=== PATIENT | male | born 1990 | race Caucasian/White ===

== ENCOUNTER 2020-09-01 19:08 | Emergency (ER) | payer BC, SELFPAY ==
[2020-09-01 19:30] VITALS: BP 125/88; PULSE 78; RESP 14; TEMP 36.9; O2SAT 100; BMI 21.5
--- NOTE | 2020-09-01 19:45 | XR_ITS ---
PROCEDURE: XR CHEST PORTABLE CLINICAL HISTORY: POSSIBLE COVID Shortness of air, fever, cough COMPARISON: CR CXR CHEST(2 VIEWS-NOT PORTABLE) from 10/20/2012 FINDINGS: The cardiomediastinal silhouette and pulmonary vascularity are within normal limits. The lungs are clear without infiltrates, suspicious nodules, or pleural effusions. Mild lumbar scoliosis convex right IMPRESSION: No acute findings. Dictated by: Robin Santillan MD 09/02/2020 07:08 Robin Santillan MD in [place] 09/02/2020 07:08
--- NOTE | 2020-09-01 20:19 | HMH.EDUTC ---
[facility] [place] Clinical Impression: Bronchitis, Viral syndrome, Exposure to COVID-19 virus Disposition: Home, Self-Care Condition on Discharge: Good Instructions: Preventing the Spread of Coronavirus Discharge Instructions Additional Instructions: Drink plenty of fluids. Take tylenol or ibuprofen for pain or fever. Take the medications as directed. Follow up with your regular doctor. GO TO THE ER FOR ANY WORSENING SYMPTOMS Prescriptions: Albuterol Sulfate [Albuterol Sulfate Hfa] 2 puffs IH Q6HP PRN 30 Days #1 [email or web address] PRN Reason: Shortness Of Breath Transmission Status: Received by [facility] Benzonatate [Tessalon Perle 100mg Cap] 100 mg PO TIDP PRN #30 cap PRN Reason: Cough Transmission Status: Received by [facility] Azithromycin [Z-Jos 250mg Tab*] 250 mg PO UD DOSE PK #6 tab Transmission Status: Received by [facility] Referrals: Joan Bocanegra [Primary Care Provider] - Time of Disposition: 20:38 Medical Decision Making - Medical Records Medical records reviewed: No: I reviewed the patient's medical records. - Alex Inquiry Pt receiving controlled substance: No Vital Signs: 09/01/20 19:30 09/01/20 20:41 Temperature 98.4 F 98.4 F Temperature Source Oral Pulse Rate 78 Pulse Rate [Right Brachial] 78 Respiratory Rate 14 14 Blood Pressure 125/88 Blood Pressure [Right Arm] 125/88 Blood Pressure Mean [Right Arm] 100 Blood Pressure Source [Right Arm] Automatic Cuff Blood Pressure Position [Right Arm] Sitting 02 Sat by Pulse Oximetry 100 Oxygen Delivery Method Room Air Orders (Tests/Meds): ED MEDICATIONS Discontinued Medications Generic Name Dose Route Start Last Admin Trade Name Freq PRN Reason Stop Dose Admin Azithromycin 500 mg 09/01/20 20:37 09/01/20 20:45 Azithromycin 250mg Tablet PO 09/01/20 20:38 500 mg ONCE ONE Administration Protocol ORDERS Category Date Time Status Full Resp Panel w/COVID ([facility]) Routine Lab 09/01/20 19:40 [place] [facility] [place] - General Stated complaint: sob COUGH Time Seen by Provider: 09/01/20 20:19 Mode of Arrival: Ambulatory Source of Information: Patient Limitations: No Limitations Description of Symptoms (Recalled from Triage Doc. by RN): PATIENT C/O SOA AND COUGH. POSSBILE EXPOSURE TO COVID HEENT Symptoms (Recalled from RN notes): No Resp Symptoms (Recalled from RN notes): Yes Skin Symptoms (Recalled from RN notes): No MS Symptoms (Recalled from RN notes): No Functional Status (Recalled from RN notes): WNL - History of Present Illness Provider Complaint: He states that for the past 5 days he has had cough, chest tightness, chilling, and body aches. He was tested for covid on the first day that he started feeling like this. - Related Data Previous Rx's Medication Instructions Recorded Albuterol Sulfate [Albuterol 2 puffs IH Q6HP PRN 30 Days #1 09/01/20 Sulfate Hfa] [email or web address] Azithromycin [Z-Jos 250mg Tab*] 250 mg PO UD DOSE PK #6 tab 09/01/20 Benzonatate [Tessalon Perle 100mg 100 mg PO TIDP PRN #30 cap 09/01/20 Cap] Allergies Allergy/AdvReac Type Severity Reaction Status Date / Time No Known Allergies Allergy Verified 09/01/20 19:51 - Worker's Comp Is this a Worker's Comp case?: No [facility] History - Hepatitis A Screen Drug use history?: No High risk sexual behaviors?: No History of sexually transmitted infection?: No Currently employed?: No Childcare worker?: No Do you have indoor plumbing?: Yes Do you have electricity?: Yes Attestation statement:: This patient has been screened for Hepatitis A risk factors. I have reviewed the patient's past medical history: Yes - Social History Smoking Status: Never smoker Tobacco Type: smokeless tobacco # Packs/Day (cigarettes): 0 Alcohol Intake: current Occupational Status: other ROS Obtained: Yes All systems reviewed & no additional complaints - Constitutional Constitutional: Reports system re
[2020-09-01 20:41] VITALS: BP 125/88; PULSE 78; RESP 14; TEMP 36.9; O2SAT 100
[2020-09-02 09:06] LABS: Adenovirus,PCR Not Detected (NotDetected); Bordetella Pertussis Not Detected (NotDetected); Chlamydophila Pneumoniae, PCR Not Detected (NotDetected); Coronavirus 19, PCR Not Detected (NotDetected); Coronavirus 229E Not Detected (NotDetected); Coronavirus NL63 Not Detected (NotDetected); Coronavirus OC43 Not Detected (NotDetected); Coronovirus HKU1,PCR Not Detected (NotDetected); Human Metapneumovirus Not Detected (NotDetected); Influenza A, PCR Not Detected (NotDetected); Influenza AH1, 2009 Not Detected (NotDetected); Influenza AH1, PCR Not Detected (NotDetected); Influenza AH3,PCR Not Detected (NotDetected); Influenza B, PCR Not Detected (NotDetected); Mycoplasma Pneumoniae, PCR Not Detected (NotDetected); Parainfluenza 1, PCR Not Detected (NotDetected); Parainfluenza 2, PCR Not Detected (NotDetected); Parainfluenza 3, PCR Not Detected (NotDetected); Parainfluenza 4, PCR Not Detected (NotDetected); Respiratory Syncytial Virus Not Detected (NotDetected); Rhinovirus/Enterovirus Not Detected (NotDetected)
== END 2020-09-01 20:48 | disposition home or self-care (01) ==
PROVIDERS: Emergency Provider Nurse Practitioner Family; PCP Nurse Practitioner Family
DX: Z20.828 Contact with and (suspected) exposure to other viral communicable diseases (principal); J20.9 Acute bronchitis, unspecified
CPT/HCPCS: 71045; 87581; 87633; 87798; 99202; U0003; U0004

== ENCOUNTER → 2021-04-10 09:03 | Outpatient (CLI) | payer BC, SELFPAY ==
--- NOTE | 2021-04-10 09:08 | US_ITS ---
PROCEDURE: US TESTICULAR CLINICAL INDICATION: RT TESTICULAR PAIN COMPARISON: No exams were available for comparison FINDINGS: The right testes measures 4.9 x 3.5 x 2.7 centimeters and the left testis measures 4.1 x 4 x 2.9 centimeters. Vascularity is within normal limits. Normal echotexture of the testes are noted bilaterally. The right epididymis measures 1.2 x 1.2 centimeters and the left epididymis measures 1.4 x 0.9 centimeters. Mildly increased vasculature with heterogeneous echogenicity of the right epididymal head. Small left hydrocele. IMPRESSION: Findings are suggestive of early/mild epididymitis. Small left hydrocele. Dictated by: Alem Burns 04/10/2021 10:29 Alem Burns in [place] 04/10/2021 10:29
== END ==
PROVIDERS: PCP Nurse Practitioner Family; Visit Provider Nurse Practitioner Family
DX: N50.811 Right testicular pain (principal)
CPT/HCPCS: 76870

== ENCOUNTER 2023-02-13 19:12 | Emergency (ER) | payer OTHER, SELFPAY ==
--- NOTE | 2023-02-13 19:30 | EXP.UTC ---
Discharge Plan Disposition Patient Disposition: Home, Self-Care Condition: Good Prescriptions Prescriptions: New cephalexin 500 mg capsule 500 mg PO QID Qty: 40 0RF No Action azithromycin 250 MG tablet 250 mg PO UD DOSE PK Qty: 6 0RF Rx Instructions: Take two (2) tablets today, then one (1) tablet days #2 thru #5 benzonatate 100 MG capsule 100 mg PO TIDP PRN (Reason: Cough) Qty: 30 0RF albuterol sulfate 8.5 GM HFA aerosol inhaler 2 puffs IH Q6HP PRN (Reason: Shortness Of Breath) 30 Days Qty: 1 5RF Referrals Follow up/Referrals: Joan Bocanegra [Primary Care Provider] - See instructions Activity Restrictions/Add. Instructions Additional Instructions/Restrictions: Keep the wound clean and dry. Keep a dressing on it if you are going to be getting it dirty. Watch the wound for signs of infection, such as redness, swelling, drainage, fever. etc. Take tylenol or ibuprofen for pain. Follow up with your regular doctor. Return in 10 days to have the sutures removed. GO TO THE ER FOR ANY WORSENING SYMPTOMS OR CONCERNS. 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 His tetanus immunization is not up to date. Related Data Previous Rx's Medication Instructions Recorded albuterol sulfate 90 mcg/actuation 2 puffs IH Q6HP PRN Shortness Of 09/01/20 aerosol inhaler Breath 30 days ##1 azithromycin 250 mg tablet 250 mg PO UD DOSE PK #6 tabs 09/01/20 benzonatate 100 mg capsule 100 mg PO TIDP PRN Cough #30 caps 09/01/20 cephalexin 500 mg capsule 500 mg PO QID #40 caps 02/13/23 Allergies Allergy/AdvReac Type Severity Reaction Status Date / Time No Known Allergies Allergy Verified 02/13/23 19:39 [facility] Disclaimer: The information contained in this section may have been updated after the patient was seen, as this information can be updated by other users. Social History Smoking Status: Never smoker alcohol intake: current current occupational status: other Travel in the last 8 weeks: None ROS Obtained: Yes All systems reviewed & no additional complaints except as documented Constitutional Constitutional: Denies chills and Denies fever(s) Eyes Eyes: Denies eye discharge ENT Ears, Nose, Mouth, and Throat: Denies dizziness, Denies otalgia and Denies sore throat Cardiovascular Cardiovascular: Denies chest pain Respiratory Respiratory: Denies shortness of breath, Denies chest congestion, Denies cough, Denies stridor and Denies wheezing Gastrointestinal Gastrointestingal: Denies nausea or vomiting Musculoskeletal Musculoskeletal: Reports system reviewed and no additional complaints, except as documented and Denies arthralgias Integumentary/Breasts Skin/Breast: Reports as per HPI Neurologic Neurologic: Denies dizziness and Denies paresthesias Allergic/Immunologic Allergic/Immunologic: Denies wheezing Physical Exam General General appearance: alert and in no apparent distress Head Head exam: atraumatic, normocephalic and normal inspection Eye Eye exam: Present normal appearance, PERRL and EOMI ENT ENT exam: Present normal exam, normal oropharynx, mucous membranes moist, TM's normal bilaterally and normal external ear exam Neck Neck exam: Present normal inspection, full ROM and trachea midline; Absent meningismus or lymphadenopathy Chest Chest inspection: Present normal inspection and symmetric chest wall rise; Absent tenderness Respiratory Respiratory exam: Present normal lung sounds bilaterally; Absent respiratory distress Cardiovascular Cardiovascular exam: Present regular rate and normal rhythm; Ab
[2023-02-13 19:35] VITALS: BP 147/95; PULSE 108; RESP 16; TEMP 36.6; O2SAT 98; BMI 23.6
[2023-02-13 20:20] VITALS: BP 147/95; PULSE 108; RESP 16; TEMP 36.6
== END 2023-02-13 20:26 | disposition home or self-care (01) ==
PROVIDERS: Emergency Provider Nurse Practitioner Family; PCP Nurse Practitioner Family
DX: S61.211A Laceration without foreign body of left index finger without damage to nail, initial encounter (principal); W26.0XXA Contact with knife, initial encounter
CPT/HCPCS: 12001; 90714; 96372; 99213; 99214; G0463

== ENCOUNTER 2023-10-03 19:07 | Emergency (ER) | payer OTHER, SELFPAY ==
[2023-10-03 19:17] VITALS: BMI 25.1
--- NOTE | 2023-10-03 19:18 | XR_ITS ---
PROCEDURE INFORMATION: Exam: XR Left Hand Exam date and time: 10/03/2023 7:14 PM Age: 33 years old Clinical indication: Injury or trauma; Other: Injured removing jeannette from tractor; Laceration; Left; Index finger; Additional info: Index finger injury TECHNIQUE: Imaging protocol: Radiologic exam of the left hand. Views: 3 or more views. COMPARISON: No relevant prior studies available. FINDINGS: Bones/joints: Normal. Soft tissues: Normal. IMPRESSION: No acute findings.
[2023-10-03 19:50] VITALS: BP 129/83; PULSE 82; RESP 20; TEMP 36.6; O2SAT 98; BMI 22.9
--- NOTE | 2023-10-03 20:09 | EXP.UTC ---
Discharge Plan Disposition Patient Disposition: Still a Patient Referrals Follow up/Referrals: Joan Bocanegra [Primary Care Provider] - See instructions Discharge ED Provider: Ana Graham [facility] [place] General Stated complaint: cut on pointer finger left hand Mode of Arrival: Ambulatory Source of Information: Patient Limitations: No Limitations Time Seen by Provider: 10/03/23 20:09 Description of Symptoms (Recalled from Triage Doc. by RN): PATIENT STATES HE SMASHED HIS FINGER BETWEEN A FAN BELT AND A NELI AT [employer]OX 1830 THIS EVENING HEENT Symptoms (Recalled from RN notes): No Resp Symptoms (Recalled from RN notes): No Skin Symptoms (Recalled from RN notes): Yes MS Symptoms (Recalled from RN notes): Yes Functional Status (Recalled from RN notes): WNL History of Present Illness Provider Complaint: Patient states that he was working on a tractor taking a pully off and it slipped and he smashed his left index finger States that he had a flap like area that was sticking up and his pushed it back down and they wrapped it up and made him come in to get it checked Related Data Allergies Allergy/AdvReac Type Severity Reaction Status Date / Time No Known Allergies Allergy Verified 02/13/23 19:39 Worker's Comp Is this a Worker's Comp case?: No [facility] Disclaimer: The information contained in this section may have been updated after the patient was seen, as this information can be updated by other users. Surgical History (Updated 10/03/23 @ 19:57 by Sena Doty RN) History of appendectomy Social History Smoking Status: Never smoker alcohol intake: current current occupational status: other Travel in the last 8 weeks: None ROS Obtained: Yes All systems reviewed & no additional complaints except as documented and Yes Systems reviewed as appropriate & no additional complaints except as documented Constitutional Constitutional: Reports system reviewed and no additional complaints, except as documented and Reports as per HPI ENT Ears, Nose, Mouth, and Throat: Reports system reviewed and no additional complaints, except as documented and Reports as per HPI Cardiovascular Cardiovascular: Reports system reviewed and no additional complaints, except as documented and Reports as per HPI Respiratory Respiratory: Reports system reviewed and no additional complaints, except as documented and Reports as per HPI Musculoskeletal Musculoskeletal: Reports system reviewed and no additional complaints, except as documented and Reports as per HPI Comments: smashed his left index finger removing a jeannette from a tractor and it slipped and smashed the side of tip of his left index finger Physical Exam General General appearance: alert and in no apparent distress Respiratory Respiratory exam: Present normal lung sounds bilaterally; Absent respiratory distress or wheezes Cardiovascular Cardiovascular exam: Present regular rate, normal rhythm and normal heart sounds Expanded Upper Extremity Exam Left: Hand L/R back image: 1. laceration noted no active bleeding appears to have nail bed involvement with outer corner of nail split Neurological Exam Neurological exam: Present alert, oriented X3 and normal gait Medical Decision Making Alex Inquiry Pt receiving controlled substance: No Alex was queried for this patient: No Vital Signs: 10/03/23 19:50 Temperature 97.9 F Temperature Source Oral Pulse Rate [Right Brachial] 82 Respiratory Rate 20 Blood Pressure [Right Arm] 129/83 Blood Pressure Mean [Right Arm] 98 Blood Pressure Source [Right Arm] Automatic Cuff Blood Pressure Position [Right Arm] Sitting 02 Sat by Pulse Oximetry 98 Oxygen Delivery Method Room Air Orders (Tests/Meds): ORDERS Category Date Time Status Hand XR left minimum 3 views [XR hand LT min 3V] Stat Exams 10/03/23 19:18 Completed Radiology Data #1: Image(s): Hand Image Reviewed: Yes I have reviewed radiologist's interpretation FINDINGS: Bones/joints: Normal. Soft tissues: Normal. IMPRESSION: No acute findings. Medical Decision Narrative: Patient has laceration to left index finger from smashing finger while removing a jeannette from a tractor and appears to have nail bed involvement Due to nail bed involvement will transfer to the ED for further evaluation and treatment
[2023-10-03 20:49] VITALS: BP 127/86; PULSE 68; RESP 17; TEMP 36.9; O2SAT 99; BMI 23.6
[2023-10-03] MEDS: ONDANSETRON 4MG ODT 4 MG SL (23:00)
--- NOTE | 2023-10-03 23:01 | PC.NURSE ---
Placed left hand in hibiclens and water to soak at this time per provider instruction.
[2023-10-03 23:53] VITALS: BP 121/70; PULSE 73; RESP 19; TEMP 36.8; O2SAT 98
--- NOTE | 2023-10-08 15:34 | ED_ITS ---
Discharge Plan Disposition Patient Disposition: Home, Self-Care Condition: Good Referrals Follow up/Referrals: Joan Bocanegra [Primary Care Provider] - See instructions Activity Restrictions/Add. Instructions Additional Instructions/Restrictions: Call your family doctor to establish care for this visit to the emergency department and schedule follow-up within 48 hours to ensure improvement. If you have any worsening of your condition or any other concerning signs or symptoms, return to the emergency department or your primary care doctor for further evaluation. Take Tylenol 1000 mg every 6 hours (4 times daily) and ibuprofen 400 mg every 6 hours (4 times daily) as needed with food and water to prevent GI upset and kidney damage. Clinical Impressions Clinical Impression: Crushing injury of left index finger Discharge ED Provider: eJff Bustillo General Adult HPI General Chief complaint: Extremity Injury, Upper Stated complaint: cut on pointer finger left hand Time Seen by Provider: 10/03/23 20:09 Mode of Arrival: Family Vehicle Limitations: No Limitations Description of Symptoms (Recalled from ER Triage Doc. by RN): 33 yo male presents with CC of left index finger being smashed while working on equipment outdoors at home. sent over from [facility] when need exceeded ability. 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 History of Present Illness HPI narrative: 33-year-old male tetanus up-to-date presenting with crush injury to left index finger. Happened while he was working on equipment at home. 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 Sent from urgent care out of concern for nailbed injury. Not currently having pain Related Data Allergies Allergy/AdvReac Type Severity Reaction Status Date / Time No Known Allergies Allergy Verified 02/13/23 19:39 [facility] Disclaimer: The information contained in this section may have been updated after the patient was seen, as this information can be updated by other users. Surgical History (Updated 10/03/23 @ 19:57 by Sena Doty RN) History of appendectomy Social History Smoking Status: Never smoker alcohol intake: current current occupational status: other Travel in the last 8 weeks: None ROS Obtained: Yes All systems reviewed & no additional complaints except as documented Physical Exam General General appearance: alert and in no apparent distress Head Head exam: atraumatic and normocephalic Eye Eye exam: Present normal appearance, PERRL and EOMI ENT ENT exam: Present mucous membranes moist Neck Neck exam: Present normal inspection, full ROM and trachea midline Respiratory Respiratory exam: Absent respiratory distress, wheezes, stridor, accessory muscle use or prolonged expiratory phase Cardiovascular Cardiovascular exam: Present normal rhythm Abdominal Exam Abdominal exam: Present soft; Absent distention, tenderness, guarding, rebound or rigidity Extremities Exam Extremities exam: Present other (1 cm laceration medial aspect of pointer finger with associated broken nail with small chip taken out. Does not violate eponychial fold or nailbed); Absent edema Neurological Exam Neurological exam: Present alert, oriented X3, CN II-XII intact and normal gait; Absent motor sensory deficit Skin Skin exam: Present warm and dry; Absent diaphoresis or erythema Medical Decision Making Medical Records Medical records reviewed: Yes I reviewed the patient's medical records. Alex Inquiry Pt receiving controlled substance: No Alex was queried for this patient: No Vital Signs: 10/03/23 19:50 10/03/23 20:49 10/03/23 23:53 Temperature 97.9 F 98.4 F 98.2 F Temperature Source Oral Oral Oral Pulse Rate 73 Pulse Rate [Right Brachial] 82 68 Respiratory Rate 20 17 19 Blood Pressure 121/70 Blood Pressure [Right Arm] 129/83 127/86 Blood Pressure Mean [Right Arm] 98 99 Blood Pressure Source Automatic Cuff Blood Pressure Source [Right Arm] Automatic Cuff Automatic Cuff Blood Pressure Position Sitting Blood Pressure Position [Right Arm] Sitting Sitting 02 Sat by Pulse Oximetry 98 99 Oxygen Delivery Method Room Air Room Air Room Air Orders (Tests/Meds): ED MEDICATIONS Discontinued Medications Generic Name Dose Route Start Last Admin Trade Name Freq PRN Reason Stop Dose Admin Lidocaine HCl 10 ml 10/03/23 22:52 Lidocaine 1% 10ml Mdv SQ 10/03/23 22:53 ONCE ONE Ondansetron HCl 4 mg 10/03/23 22:52 10/03/23 23:04 Ondansetron 4mg/2ml Vial IV 10/03/23 22:53 Not Given ONCE ONE Ondansetron HCl 4 mg 10/03/23 22:55 10/03/23 23:00 Ondansetron 4mg Odt SL 10/03/23 22:56 4 mg ONCE ONE Administration ORDERS Category Date Time Status Hand XR left minimum 3 views [XR hand LT min 3V] Stat Exams 10/03/23 19:18 Completed Medical Decision Narrative: 33-year-old male tetanus up-to-date presenting with crush injury to left index finger. Happened while he was working on equipment at home. 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 Sent from urgent care out of concern for nailbed injury. Not currently having pain. History obtained with patient. Because patient becomes nauseated with lidocaine in the past, was given Zofran prior to lidocaine. Patient was numbed using digital block of the left finger. Laceration was irrigated extensively and cleaned with chlorhexidine/saline. Minimal debridement was needed. Patient's hand was closed with 5 sutures 4 point 0 nylon. Overlying this, Dermabond was placed where the nail was broken given patient works with his hands frequently and this is dominant hand. Patient tolerated procedure well. X-rays were taken, no evidence of fracture. Because patient at baseline without signs or symptoms of clinical decompensation, deemed appropriate for discharge. Results were relayed to patient who voiced understanding and were agreeable to outpatient management and follow up. At the time of discharge the patient was hemodynamically stable, tolerating PO, and mobilizing appropriately. Procedures Laceration Laceration 1: Site: finger Side (If applicable): left Size (cm): 1 Description: linear Depth: simple, single layer Local Anesthetic: lidocaine 1% Amount of anesthesia used (mL): 8 Pre-repair: wound explored, irrigated extensively and deep structures intact Skin layer closed with: nylon and Dermabond Size (cm): 4-0 Number of sutures: 5 Technique: simple, interrupted Critical Care Critical Care Time Critical Care Time: No
== END 2023-10-03 23:55 | disposition home or self-care (01) ==
LOC: UTC 19:12 → ER 20:47
PROVIDERS: Emergency Provider Emergency Medicine; PCP Nurse Practitioner Family
DX: S67.191A Crushing injury of left index finger, initial encounter (principal); W23.1XXA Caught, crushed, jammed, or pinched between stationary objects, initial encounter; S61.211A Laceration without foreign body of left index finger without damage to nail, initial encounter
CPT/HCPCS: 12001; 73130; 99283